=== PATIENT | female | born 1985 | race Caucasian/White ===

== ENCOUNTER 2018-04-03 18:46 | Emergency (ER) | payer BC, SELFPAY ==
[2018-04-03] MEDS ORDERED: HYDROcodone/Acetaminophen 5/325 mg Tablet ONE (21:52)
== END 2018-04-03 22:30 | disposition home or self-care (01) ==
LOC: ERS 18:46
DX: L03.012 Cellulitis of left finger (principal); F41.9 Anxiety disorder, unspecified; F17.210 Nicotine dependence, cigarettes, uncomplicated; Z79.899 Other long term (current) drug therapy
CPT/HCPCS: 10060; 87070; 87077; 87186; 87205

== ENCOUNTER 2018-04-25 11:38 | Emergency (ER) | payer BC ==
[2018-04-25] MEDS ORDERED: HYDROcodone/Acetaminophen 10/325 mg Tablet ONE (12:47)
--- NOTE | 2018-04-25 13:26 | RAD ---
FRONTAL AND LATERAL IMAGING OF THE LEFT FEMUR: Date: 04-25-18 Comparison: None. History: Injury, fall, leg bruising. FINDINGS: Frontal and lateral imaging of the left femur demonstrate no displaced fracture or evidence of disloc ation. IMPRESSION: No acute osseous abnormality. POS: [facility]
== END 2018-04-25 14:00 | disposition home or self-care (01) ==
LOC: ERS 11:38
DX: S70.12XA Contusion of left thigh, initial encounter (principal); Z86.73 Personal history of transient ischemic attack (TIA), and cerebral infarction without residual deficits; F41.9 Anxiety disorder, unspecified; F17.210 Nicotine dependence, cigarettes, uncomplicated; W19.XXXA Unspecified fall, initial encounter

== ENCOUNTER 2018-04-29 11:49 | Emergency (ER) | payer BC ==
--- NOTE | 2018-04-29 13:07 | ULT ---
DOPPLER VENOUS ULTRASOUND OF THE LEFT LOWER EXTREMITY: Indication: Left leg injury two weeks ago with increasing pain and edema in the left leg. TECHNIQUE: Bullock scale, color Doppler, and vascular duplex with spectral analysis was performed of the deep venou s structures of both lower extremities. The common femoral vein, superficial femoral vein, popliteal vein, posterior tibial vein, proximal greater saphenous, and proximal profunda veins were assessed bi laterally. FINDINGS: There is normal compression, flow, and augmentation seen within the deep venous structures of the lef t lower extremity. IMPRESSION: No evidence of DVT within the left lower extremity. POS: [facility]
== END 2018-04-29 13:55 | disposition home or self-care (01) ==
LOC: ERS 11:49
DX: M25.562 Pain in left knee (principal); M25.572 Pain in left ankle and joints of left foot; E27.1 Primary adrenocortical insufficiency; K31.84 Gastroparesis; F41.9 Anxiety disorder, unspecified; F17.210 Nicotine dependence, cigarettes, uncomplicated; Z86.73 Personal history of transient ischemic attack (TIA), and cerebral infarction without residual deficits; Z79.899 Other long term (current) drug therapy

== ENCOUNTER 2023-06-07 14:22 | Emergency (ER) | payer BC, SELFPAY ==
[2023-06-07 15:11] LABS: #Basophils 0.1 thou/uL (0.0-0.2); #Eosinphils 0.1 thou/uL (0.0-0.7); #Monocytes 0.7 thou/uL (0.11-0.59); #Neutrophils 7.9 thou/uL (1.40-6.50); %Basophils 0.7 % (0.0-1.0); %Eosinophils 0.7 % (0.0-10.0); %Lymphocytes 31.3 % (21.0-51.0); %Monocytes 5.1 % (0.0-10.0); %Neutrophils 61.8 % (42.0-75.0); Hemoglobin 17.2 g/dL (12.0-16.0); Mean Corpuscular HGB CONC 34.3 g/dL (32.0-36.0); Mean Corpuscular Hemoglobin 30.6 pg (27.0-31.0); Platelet Count 267 10x3/uL (130-400); RBC Distribution Width 12.4 % (11.5-14.5); Red Blood Cell (RBC) Count 5.63 mill/uL (4.20-5.40); White Blood Cell (WBC) Count 12.8 10x3/uL (4.8-10.8)
[2023-06-07 15:37] LABS: Bilirubin Negative (Negative); Blood, Urine Negative (Negative); CAUTI Indications for Culture Immunosuppressed; Clarity Clear (Clear); Glucose, Urine (Dipstick) Normal (Negative); Ketone, Urine Negative (Negative); Leukocyte Negative Leu/uL (Negative); Nitrite Negative (Negative); Protein, Urine (Dipstick) Negative (Neg-Trace); RBC/HPF None Seen HPF (0-3); Specific Gravity, Urine 1.004 (1.002-1.036); Squamous Epithelial 0-3 HPF (0-3); Urobilinogen Normal mg/dL (Less than 2); WBC/HPF 0-3 HPF (0-3); pH, Urine 5.5 (5.0-9.0)
[2023-06-07 15:41] LABS: ALT (SGPT) 228 U/L (8-55); AST (SGOT) 97 U/L (5-34); Albumin 4.8 g/dL (3.5-5.0); Anion Gap 19 mmol/L (10-20); BUN (Urea Nitrogen) 12 mg/dL (7.0-18.7); Bilirubin, Total 0.6 mg/dL (0.2-1.2); Calc. Creatinine Clearance 0 mL/min (70-130); Carbon Dioxide 16 mmol/L (22-29); Chloride 110 mmol/L (98-107); Estimated GFR 84; Globulin 2.8 g/dL (2.4-3.5); Glucose 142 mg/dL (70-105); Potassium 3.9 mmol/L (3.5-5.1); Protein, Total 7.6 g/dL (6.0-8.3); Sodium 141 mmol/L (136-145)
[2023-06-07 15:46] LABS: Bacteria/HPF 1+ HPF (None Seen)
[2023-06-07 15:47] LABS: Urine Culture Reflex Yes Yes
[2023-06-07 15:49] LABS: Alkaline Phosphatase 127 U/L (40-110); Calcium 10.2 mg/dL (7.8-10.44)
== END 2023-06-07 17:20 | disposition home or self-care (01) ==
LOC: ERS 14:22
DX: I10 Essential (primary) hypertension (principal); R74.01 Elevation of levels of liver transaminase levels; F17.210 Nicotine dependence, cigarettes, uncomplicated
CPT/HCPCS: 36415; 70450; 71045; 80053; 81001; 82550; 84484; 85025; 87086; 93005

== ENCOUNTER 2024-05-17 12:36 | Emergency (ER) | payer SELFPAY ==
[2024-05-17] MEDS ORDERED: Acetaminophen 500 MG TAB ONE (13:36)
[2024-05-17 14:01] LABS: Bacteria/HPF None Seen HPF (None Seen); Bilirubin Negative (Negative); Blood, Urine Negative (Negative); CAUTI Indications for Culture Dysuria,urgency,freq; Clarity Clear (Clear); Glucose, Urine (Dipstick) Greater than 1000 mg/dL (Negative); Ketone, Urine 80 mg/dL (Negative); Leukocyte 25 Leu/uL (Negative); Nitrite Negative (Negative); Protein, Urine (Dipstick) Negative (Neg-Trace); RBC/HPF 0-3 HPF (0-3); Specific Gravity, Urine 1.039 (1.002-1.036); Urobilinogen Normal mg/dL (Less than 2); pH, Urine 5.5 (5.0-9.0)
[2024-05-17 14:08] LABS: Urine Culture Reflex No No
== END 2024-05-17 15:00 | disposition home or self-care (01) ==
LOC: ERS 12:36
DX: G43.709 Chronic migraine without aura, not intractable, without status migrainosus (principal); F17.210 Nicotine dependence, cigarettes, uncomplicated
CPT/HCPCS: 71045; 81001; 96372; J1790

== ENCOUNTER 2024-11-02 14:32 | Outpatient (CLI) | payer OTHER | END 2024-11-02 14:33 | disposition home or self-care (01) | LOC: BICMAMMO 14:32 | DX: N63.10 Unspecified lump in the right breast, unspecified quadrant (principal); N63.20 Unspecified lump in the left breast, unspecified quadrant | CPT/HCPCS: 76642; 77066; G0279 ==

== ENCOUNTER 2025-10-24 09:09 | Emergency (ER) | payer OTHER ==
[2025-10-24] MEDS ORDERED: HYDROcodone/Acetaminophen 5/325 mg Tablet ONE (10:38)
[2025-10-24] MEDS ORDERED: Metoclopramide HCl 10 MG (2 mL) VIAL ONE (10:39)
[2025-10-24] MEDS ORDERED: diphenhydrAMINE 50 MG/ML VIAL ONE (10:39)
[2025-10-24 10:40] LABS: BHCG - Serum Negative (NEGATIVE); Pregs Control Background? CLEAR/WHITE (CLR/WHITE); Pregs Control Bar Appear? YES (CONTROL BAR)
[2025-10-24 10:45] LABS: ALT (SGPT) 80 U/L (Less than 34); AST (SGOT) 55 U/L (11-34); Albumin 4.4 g/dL (3.1-4.5); Alkaline Phosphatase 79 U/L (40-110); Anion Gap 15 mmol/L (10-20); BUN (Urea Nitrogen) 20 mg/dL (7.0-18.7); Bilirubin, Total 0.6 mg/dL (0.3-1.2); Calc. Creatinine Clearance 0 mL/min (70-130); Calcium 9.8 mg/dL (7.8-10.44); Carbon Dioxide 18 mmol/L (22-29); Chloride 107 mmol/L (98-107); Globulin 3.1 g/dL (2.4-3.5); Glucose 161 mg/dL (70-105); Lipase 16 U/L (8-78); Potassium 3.6 mmol/L (3.5-5.1); Sodium 136 mmol/L (136-145)
[2025-10-24 10:54] LABS: #Basophils 0.09 10x3/uL (0.0-0.2); #Eosinophils 0.11 10x3/uL (0.0-0.7); #Monocytes 0.76 10x3/uL (0.11-0.59); #Neutrophils 8.28 10x3/uL (1.40-6.50); %Basophils 0.7 % (0.0-1.0); %Eosinophils 0.9 % (0.0-10.0); %Lymphocytes 25.2 % (21.0-51.0); %Monocytes 6.1 % (0.0-10.0); %Neutrophils 66.3 % (42.0-75.0); Hematocrit 47.9 % (36.0-47.0); Hemoglobin 17.1 g/dL (12.0-16.0); Mean Corpuscular Hemoglobin 31.1 pg (27.0-31.0); Mean Corpuscular Volume 87.1 fL (78.0-98.0); Platelet Count 274 10x3/uL (130-400); Red Blood Cell (RBC) Count 5.50 mill/uL (4.20-5.40); White Blood Cell (WBC) Count 12.48 10x3/uL (4.8-10.8)
[2025-10-24 11:25] LABS: Platelet Adequacy Comment Platelets Normal
[2025-10-24] MEDS ORDERED: Famotidine/PF 20 mg/2ml Vial ONE (12:24)
== END 2025-10-24 12:33 | disposition home or self-care (01) ==
LOC: ERS 09:09
DX: R51.9 Headache, unspecified (principal); R10.9 Unspecified abdominal pain; D72.829 Elevated white blood cell count, unspecified; E11.9 Type 2 diabetes mellitus without complications; F17.210 Nicotine dependence, cigarettes, uncomplicated
CPT/HCPCS: 70450; 71045; 80053; 83690; 84484; 84703; 85025; 87428; 93005; 96365; 96375; J1200; J1308; J2765